=== PATIENT | male | born 2000 | race African-American/Black ===

== ENCOUNTER 2018-11-07 03:30 | Emergency (ER) | payer OTHER ==
--- NOTE | 2018-11-07 04:07 | EDM.PDOC ---
ED HPI GENERAL MEDICAL PROBLEM - General Chief Complaint: Head Injury Stated Complaint: Head injury, laceration, intoxication Time Seen by Provider: 11/07/18 04:06 Source of Information: Reports: Patient, EMS Notes Reviewed, RN, RN Notes Reviewed History Limitations: Reports: No Limitations - History of Present Illness INITIAL COMMENTS - FREE TEXT/NARRATIVE: Patient is brought to the ED at [facility] for the evaluation of a posterior scalp laceration. Patient hit his head on a brick wall. According to EMS, the patient had been drinking alcohol when the injury occurred. Witnesses do not think he had any LOC. Patient apparently lost his balance and hit the back of his head on a cement wall in his dorm room. Patient denies any headache. No neck pain or back pain. Patient remembers the entire injury. No visual field disturbances. No previous injury or trauma. Patient denies any numbness, tingling, or paresthesias. Onset: Today, Sudden Onset Date: 11/07/18 - Related Data Allergies Allergy/AdvReac Type Severity Reaction Status Date / Time No Known Allergies Allergy Verified 11/07/18 03:51 Home Meds: Home Meds . [No Known Home Meds] 11/07/18 [History] ED ROS GENERAL - Review of Systems Review Of Systems: See Below Constitutional: Denies: Fever, Chills HEENT: Denies: Vision Change Respiratory: Denies: Shortness of Breath, Cough Cardiovascular: Denies: Chest Pain, Palpitations Musculoskeletal: Denies: Neck Pain, Back Pain Skin: Reports: Wound Neurological: Reports: No Symptoms ED EXAM, HEAD INJURY - Physical Exam Exam: See Below Exam Limited By: No Limitations General Appearance: Alert, No Apparent Distress Head: Normocephalic, Scalp Lacerations Nexus Criteria: Evidence of Intoxication. No: Posterior, Midline Cervical Tenderness, Altered Level of Consciousness, Focal Neurological Deficit Eyes: Bilateral Eye: EOMI, Normal Inspection, PERRL Ears: Normal External Exam, Normal Canal, Normal TMs Nose: Normal Inspection, No Blood Throat/Mouth: Normal Inspection, Normal Oropharynx, No Airway Compromise Neck: Non-Tender, Full Range of Motion, Normal Alignment Respiratory: No Respiratory Distress, Lungs Clear, Normal Breath Sounds Cardiovascular: Normal Peripheral Pulses, Regular Rate, Rhythm Back Exam: Normal Inspection Neurologic: Alert, Oriented x 3 Skin: Other (2cm horizontal laceration posterior scalp; low grade venous ooze) - [place] Coma Score Best Eye Response ([place]): (4) Open Spontaneously Best Verbal Response ([place]): (5) Oriented Best Motor Response ([place]): (6) Obeys Commands [place] Total: 15 ED LACERATION/WOUND & MARGA PROC - Laceration/Wound Repair Posterior Head Lac/wound length in cm: 2 Appearance: Subcutaneous Anesthetic Type: Other (None) Skin Prep: Chlorhexidine (Hibiciens), Saline Exploration/Debridement/Repair: Wound Explored, In a Bloodless Field, Explored to Base, No Foreign Material Found Closed with: Niyah # of Sutures: 5 Sterile Dressing Applied: None Tetanus Status Addressed: Yes Complications: No Course - Vital Signs Last Recorded V/S: Last Vital Signs Temp 35.7 C 11/07/18 03:35 Pulse 69 11/07/18 03:35 Resp 16 11/07/18 03:35 BP 157/73 H 11/07/18 03:35 Pulse Ox 96 11/07/18 03:35 Departure - Departure Time of Disposition: 04:22 Disposition: Home, Self-Care 01 Condition: Good Clinical Impression: Closed head injury without loss of consciousness Scalp laceration Qualifiers: Encounter type: initial encounter Qualified Code(s): S01.01XA - Laceration without foreign body of scalp, initial encounter - Discharge Information *PRESCRIPTION DRUG MONITORING PROGRAM REVIEWED*: Not Applicable *COPY OF PRESCRIPTION DRUG MONITORING REPORT IN PATIENT TOMY: Not Applicable Instructions: Stitches, Niyah, or Adhesive Wound Closure, Sutured Wound Care Forms: ED Department Discharge Additional Instructions: 1. Stay well hydrated and rest 2. Stop drinking 3. Niyah need to stay in for 10 days 4. See PCP in 10 days for staple removal - Problem List Review Problem List Initiated/Reviewed/Updated: Yes - Assessment/Plan Assessment:: Head laceration Plan: [place] placed without problems. Tolerated well. Will need to stay in for 10 days. Cleanse normally. See PCP for removal in 10 days.
== END 2018-11-07 04:32 | disposition home or self-care (01) ==
LOC: EDBD 03:30 → VM.ED 03:30
DX: S01.01XA Laceration without foreign body of scalp, initial encounter (principal); W22.01XA Walked into wall, initial encounter
CPT/HCPCS: 12001; 99284

== ENCOUNTER 2019-02-14 22:54 | Emergency (ER) | payer OTHER ==
[2019-02-14] MEDS ORDERED: Sodium Chloride 0.9% 10 ML Syringe FLUSH PRN (23:12)
--- NOTE | 2019-02-14 23:27 | EDM.PDOC ---
ED HPI GENERAL MEDICAL PROBLEM - General Chief Complaint: Lower Extremity Injury/Pain Stated Complaint: INJURY TO R THIGH Time Seen by Provider: 02/14/19 23:06 Source of Information: Reports: Patient, RN, RN Notes Reviewed History Limitations: Reports: No Limitations - History of Present Illness INITIAL COMMENTS - FREE TEXT/NARRATIVE: Patient presents to the ED at [facility] for the evaluation of the right lateral lower thigh injury. The patient states the injury occurred one week ago. He states during football practice, another player rammed his knee into the patients thigh. The patient did not do anything initially with the injury. He has been "just trying to walk it off." The thigh pain has progressively gotten worse to the point of trouble with ambulation. He is only able to bend his knee about 10 degrees. He has a previous right knee arthroscopy. He denies any numbness, tingling, or paresthesia to the RLE. Right Upper Thigh Pain Score (Numeric/FACES): 8 - Related Data Allergies Allergy/AdvReac Type Severity Reaction Status Date / Time No Known Allergies Allergy Verified 02/14/19 23:11 Home Meds: Home Meds . [No Known Home Meds] 11/07/18 [History] Past Medical History - Past Health History Medical/Surgical History: Denies Medical/Surgical History Review of Systems - Review of Systems Review Of Systems: See Below Constitutional: Denies: Chills, Fever Respiratory: Denies: Shortness of Breath, Cough Cardiovascular: Denies: Chest Pain, Palpitations Musculoskeletal: Reports: Leg Pain, Muscle Pain, Muscle Stiffness Skin: Reports: Erythema (right lateral thigh) Neurological: Reports: No Symptoms ED EXAM, GENERAL - Physical Exam Exam: See Below Exam Limited By: No Limitations General Appearance: Alert, No Apparent Distress Respiratory/Chest: No Respiratory Distress, Lungs Clear, Normal Breath Sounds Cardiovascular: Normal Peripheral Pulses, Regular Rate, Rhythm Peripheral Pulses: 2+: Posterior Tibial (L), Posterior Tibial (R), Dorsalis Pedis (L), Dorsalis Pedis (R) Extremities: Leg Pain, Limited Range of Motion, Increased Warmth, Redness, Other (swelling of the right lower lateral thigh; very taught; unable to bend knee past 10 degrees; tender to light palpation) Neurological: Alert, Oriented Course - Vital Signs Last Recorded V/S: Last Vital Signs Temp 97.5 F 02/14/19 23:28 Pulse 75 02/14/19 23:28 Resp 14 02/14/19 23:28 BP 167/59 H 02/14/19 23:28 Pulse Ox 97 02/14/19 23:28 - Orders/Labs/Meds Orders: Active Orders 24 hr Category Date Time Status Lower Extremity wo Cont Rt [CT] Stat Exams 02/14/19 23:08 Taken Sodium Chloride 0.9% [Normal Saline] 2,000 ml Med 02/14/19 23:54 Active IV ONETIME Sodium Chloride 0.9% [Saline Flush] Med 02/14/19 23:12 Active 10 ml FLUSH ASDIRECTED PRN Peripheral IV Insertion Adult [OM.PC] Routine Oth 02/14/19 23:12 Ordered Medication Orders Sodium Chloride (Normal Saline) 2,000 mls @ 999 mls/hr IV ONETIME ONE Stop: 02/15/19 01:54 Last Admin: 02/14/19 23:59 Dose: 999 mls/hr Sodium Chloride (Saline Flush) 10 ml FLUSH ASDIRECTED PRN PRN Reason: Keep Vein Open Labs: Laboratory Tests 02/14/19 02/14/19 02/14/19 Range/Units 23:20 23:20 23:20 WBC 8.9 (4.0-10.0) x10^3/uL RBC 4.96 (4.5-6.0) x10^6/uL Hgb 15.2 (14.0-18.0) g/dL Hct 45.1 (40.0-52.0) % MCV 90.9 (78.0-93.0) fL MCH 30.6 (26.0-32.0) pg MCHC 33.7 (32.0-36.0) g/dL RDW Coeff of Liliana 12.8 (10.0-15.0) % Plt Count 228 (130-400) x10^3/uL Neut % (Auto) 58.3 (50.0-80.0) % Lymph % (Auto) 31.2 (25.0-50.0) % [place] % (Auto) 9.6 (2.0-11.0) % Eos % (Auto) 0.6 (0.0-4.0) % Baso % (Auto) 0.3 (0.2-1.2) % Sodium 143 (136-145) mmol/L Potassium 3.6 (3.5-5.1) mmol/L Chloride 103 (98-107) mmol/L Carbon Dioxide 30 (21-32) mmol/L Anion Gap 13.6 (10-20) mmol/L BUN 21 H (7-18) mg/dL Creatinine 1.5 H (0.70-1.30) mg/dL Est Cr Clr Drug Dosing 73.44 mL/min Estimated GFR (MDRD) > 60 Glucose 111 H (74-106) mg/dL Calcium 9.1 (8.5-10.1) mg/dL Magnesium 1.9 (1.8-2.4) mg/dL Creatine Kinase 682 H* (39-308) U/L Meds: Medications Generic Name Dose Route Start Last Admin Trade Name Freq PRN Reason Stop Dose Admin Sodium Chloride 2,000 mls @ 999 mls/hr 02/14/19 23:54 02/14/19 23:59 Normal Saline IV 02/15/19 01:54 999 mls/hr ONETIME ONE Administration Sodium Chloride 10 ml 02/14/19 23:12 Saline Flush FLUSH ASDIRECTED PRN Keep Vein Open Departure - Departure Time of Disposition: 00:13 Disposition: Home, Self-Care 01 Condition: Good Clinical Impression: Muscle contusion, RANDY (acute kidney injury), Elevated CK - Discharge Information *PRESCRIPTION DRUG MONITORING PROGRAM REVIEWED*: Not Applicable *COPY OF PRESCRIPTION DRUG MONITORING REPORT IN PATIENT TOMY: Not Applicable Instructions: Acute Kidney Injury, Adult, Contusion Referrals: Eric Montague NP [Emergency Provider] - Forms: ED Department Discharge, ED Return to Work/School Form Additional Instructions: 1. Stay well hydrated and rest 2. Elevated right lower leg several times a day 3. May use ice/heat 4. Use Tylenol only, no Advil, Motrin, Aleve, or NSAID products 5. Will need extensive physical therapy 6. May consider MRI scan 7. No physical activity until symptoms have resolved 8. See me at the [facility] tomorrow and will get you set up for physical therapy - Problem List Review Problem List Initiated/Reviewed/Updated: Yes - My Orders Last 24 Hours: My Active Orders 02/14/19 23:08 Lower Extremity wo Cont Rt [CT] Stat 02/14/19 23:12 Sodium Chloride 0.9% [Saline Flush] 10 ml FLUSH ASDIRECTED PRN Peripheral IV Insertion Adult [OM.PC] Routine 02/14/19 23:54 Sodium Chloride 0.9% [Normal Saline] 2,000 ml IV ONETIME - Assessment/Plan Last 24 Hours: My Active Orders 02/14/19 23:08 Lower Extremity wo Cont Rt [CT] Stat 02/14/19 23:12 Sodium Chloride 0.9% [Saline Flush] 10 ml FLUSH ASDIRECTED PRN Peripheral IV Insertion Adult [OM.PC] Routine 02/14/19 23:54 Sodium Chloride 0.9% [Normal Saline] 2,000 ml IV ONETIME Assessment:: Muscle contusion RANDY Elevated CK Plan: Labs and CT results discussed with patient. Patient needs physical therapy, no football or active sports, LOTS of water, and OTC analgesics. Will see patient in clinic tomorrow to set up physical therapy. May consider MRI depending upon therapy assessment.
[2019-02-14 23:51] LABS: ANION GAP 13.6 mmol/L (10-20); CHLORIDE,CL 103 mmol/L (98-107); SODIUM,NA 143 mmol/L (136-145)
[2019-02-14] MEDS ORDERED: Sodium Chloride 0.9% 2,000 ML IV ONE (23:54)
--- NOTE | 2019-02-15 08:27 | CT ---
[id number] CT/CT Femur Right WO IV EXAM: RIGHT FEMUR CT WITHOUT CONTRAST INDICATION: Right thigh contusion with eye pain and ataxia. COMPARISON: None. DISCUSSION: Ill-defined hypodensity is suggested in the distal aspect of the vastus intermedius which could represent a contusion or sequela of muscle strain. MRI could provide further assessment if there is continued clinical concern. No fracture or dislocation. IMPRESSION: 1. Possible ill-defined hematoma within the distal aspect of the vastus intermedius. 2. Negative for acute fracture. Haseeb Aguiar MD 02/15/19 0825 Thank you for allowing us to participate in the care of your patient.
== END 2019-02-15 01:56 | disposition home or self-care (01) ==
LOC: EDBD 22:54 → VM.ED 22:54
DX: N17.9 Acute kidney failure, unspecified (principal); S70.11XA Contusion of right thigh, initial encounter; R74.8 Abnormal levels of other serum enzymes; W51.XXXA Accidental striking against or bumped into by another person, initial encounter
CPT/HCPCS: 73700; 80048; 82550; 83735; 85025; 96360; 96361; 99284; J7030; 36415

== ENCOUNTER 2019-05-01 10:55 | Emergency (ER) | payer OTHER ==
--- NOTE | 2019-05-01 11:36 | EDM.PDOC ---
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 He came to the emergency room today for an x-ray states he cannot bear weight on the foot and has been on crutches since he denies any ankle pain or knee pain and has no other complaints at this time states pain is about a 5 out of 10 sharp throbbing Duration: Hour(s): Quality: Reports: Stabbing Severity: Mild Improves with: Reports: None Worsens with: Reports: None Associated Symptoms: Reports: No Other Symptoms Right Feet Pain Score (Numeric/FACES): 4 - Related Data Allergies Allergy/AdvReac Type Severity Reaction Status Date / Time No Known Allergies Allergy Verified 05/01/19 11:16 Home Meds: Home Meds . [No Known Home Meds] 11/07/18 [History] Past Medical History - Past Health History Medical/Surgical History: Denies Medical/Surgical History - Past Surgical History Musculoskeletal Surgical History: Reports: Other (See Below) Other Musculoskeletal Surgeries/Procedures:: meniscus repair Social & Family History - Tobacco Use Smoking Status *Q: Never Smoker Review of Systems - Review of Systems Review Of Systems: See Below Constitutional: Reports: No Symptoms GI/Abdominal: Reports: No Symptoms Genitourinary: Reports: No Symptoms Musculoskeletal: Reports: Foot Pain. Denies: Leg Pain, Joint Pain, Joint Swelling, Muscle Pain, Muscle Stiffness Skin: Reports: No Symptoms Neurological: Reports: No Symptoms Psychiatric: Reports: No Symptoms ED EXAM, GENERAL - Physical Exam Exam: See Below Exam Limited By: No Limitations General Appearance: Alert, WD/WN, No Apparent Distress Back Exam: Normal Inspection, Full Range of Motion Extremities: Normal Inspection, Normal Range of Motion, No Pedal Edema, Normal Capillary Refill, Other (Exam the right foot patient has strong dorsalis pedis posterior tibialis Refill negative tenderness palpation over the medial lateral malleolus positive tenderness to palpation over the navicular no tenderness to palpation over fifth metatarsal patient has full range of motion he has no tenderness palpation over the proximal tibia there is mild edema noted over the anterior mid foot no ecchymosis). No: Non-Tender Neurological: Alert, Oriented, CN II-XII Intact, Normal Cognition, Normal Reflexes, No Motor/Sensory Deficits Psychiatric: Normal Affect, Normal Mood Skin Exam: Warm, Intact, Normal Color, No Rash Course - Vital Signs Text/Narrative:: X-ray revealed no acute fractures Patient may apply Mega wrap to the area over the next 24-48 hours with a time frame of 6 hours at a time wearing the Mega wrap Apply ice to the area 30 minutes on 30 minutes off for the next 24-48 hours is much tolerated Follow-up with her primary care provider in the next 2-3 days Last Recorded V/S: Last Vital Signs Temp 36.6 C 05/01/19 11:16 Pulse 102 H 05/01/19 11:16 Resp 16 05/01/19 11:16 BP 134/82 05/01/19 11:16 Pulse Ox 100 05/01/19 11:16 Departure - Departure Time of Disposition: 12:50 Disposition: Home, Self-Care 01 Condition: Good Clinical Impression: Sprain of foot, right Clinical Impression: (Ruled Out): Split foot, right lower limb - Discharge Information Referrals: PCP,None [Primary Care Provider] - Forms: ED Department Discharge - Problem List & Annotations (1) Sprain of foot, right SNOMED Code(s): 98403323 Code(s): S93.601A - UNSPECIFIED SPRAIN OF RIGHT FOOT, INITIAL ENCOUNTER Status: Acute Current Visit: Yes
--- NOTE | 2019-05-01 12:47 | CR ---
[id number] RAD/RAD Foot Right 2V EXAM: RIGHT FOOT 2 VIEWS INDICATION: FOOT PAIN. COMPARISON: None. DISCUSSION: Soft tissue swelling in the dorsum of the foot. 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 No acute fracture or dislocation is identified. IMPRESSION: 1. Soft tissue swelling. 2. Mild osteoarthritis. Haseeb Aguiar MD 05/01/19 1246 Thank you for allowing us to participate in the care of your patient.
== END 2019-05-01 13:06 | disposition home or self-care (01) ==
LOC: VM.ED 10:55
DX: S93.601A Unspecified sprain of right foot, initial encounter (principal); W03.XXXA Other fall on same level due to collision with another person, initial encounter; X50.1XXA Overexertion from prolonged static or awkward postures, initial encounter; Y93.61 Activity, american tackle football
CPT/HCPCS: 73620-RT; 99283-25